=== PATIENT | female | born 1965 | race Caucasian/White ===

== ENCOUNTER 2018-02-15 07:11 | Emergency (ER) | payer OTHER ==
[2018-02-15] MEDS: KETOROLAC 30 MG INJ IV (08:03)
[2018-02-15] MEDS: ONDANSETRON 4 MG INJ IV ×2 (08:03→09:41)
[2018-02-15 08:18] LABS: ADD MAN DIFF? NO
[2018-02-15 08:19] LABS: BASOPHILS % 0.5 % (0.0-2.0); EOSINOPHILS # 0.2 10^3/ul (0.0-0.5); EOSINOPHILS % 3.2 % (0.0-7.0); HEMATOCRIT 39.8 % (37.0-47.0); HEMOGLOBIN 13.4 g/dl (12.0-16.0); LYMPHOCYTES # 2.7 10^3/ul (0.8-2.9); LYMPHOCYTES % 35.8 % (15.0-51.0); MEAN CORPUSCULAR HEMOGLOBIN 29.3 pg (29.0-33.0); MEAN CORPUSCULAR HGB CONC 33.7 g/dl (32.0-37.0); MEAN CORPUSCULAR VOLUME 87.1 fl (82.0-101.0); MEAN PLATELET VOLUME 12.5 fl (7.4-10.4); MONOCYTE # 0.6 10^3/ul (0.3-0.9); MONOCYTES % 7.5 % (0.0-11.0); NEUTROPHIL # 3.9 10^3/ul (1.6-7.5); NEUTROPHILS % 52.5 % (39.0-77.0); PLATELET COUNT 223 10^3/UL (140-415); RED BLOOD COUNT 4.57 10^6/ul (4.20-5.40); RED CELL DISTRIBUTION WIDTH 13.5 % (11.5-14.5)
[2018-02-15 08:19] LABS: WHITE BLOOD COUNT 7.5 10^3/ul (4.8-10.8)
[2018-02-15 08:24] LABS: ADD UMIC YES; UR ASCORBIC ACID 20 mg/dL (NEGATIVE); UR BILIRUBIN (Dip) NEGATIVE (NEGATIVE); UR BLOOD (Dip) NEGATIVE (NEGATIVE); UR CLARITY SLIGHTLY CLOUDY (CLEAR); UR COLOR YELLOW (YELLOW); UR GLUCOSE (Dip) NEGATIVE (NEGATIVE); UR KETONES (Dip) NEGATIVE (NEGATIVE); UR LEUKOCYTE ESTERASE (Dip) 2+ Leu/ul (NEGATIVE); UR NITRITE (Dip) NEGATIVE (NEGATIVE); UR RBC 2 /HPF (0-5); UR SPECIFIC GRAVITY (Dip) 1.018 (1.003-1.030); UR SQUAMOUS EPITHELIAL CELL FEW /HPF (FEW); UR TOTAL PROTEIN (Dip) NEGATIVE (NEGATIVE); UR UROBILINOGEN (Dip) NEGATIVE (NEGATIVE); UR WBC 1 /HPF (0-5)
[2018-02-15 08:40] LABS: ALANINE AMINOTRANSFERASE 56 IU/L (13-69); ALBUMIN/GLOBULIN RATIO 1.37; ALKALINE PHOSPHATASE 83 IU/L (42-121); ANION GAP 16 (8-16); ASPARTATE AMINO TRANSFERASE 44 IU/L (15-46); BILIRUBIN,INDIRECT 0.3 mg/dl (0-1.1); BILIRUBIN,TOTAL 0.3 mg/dl (0.2-1.3); BLOOD UREA NITROGEN 12 mg/dl (7-20); CALCIUM 9.2 mg/dl (8.4-10.2); CARBON DIOXIDE 24 mmol/L (21-31); CHLORIDE 107 mmol/L (97-110); CREATININE 0.56 mg/dl (0.44-1.00); GLUCOSE 158 mg/dl (70-220); LIPASE 859 U/L (23-300); POTASSIUM 4.2 mmol/L (3.5-5.1); SODIUM 143 mmol/L (135-144); TOTAL PROTEIN 6.9 g/dl (6.1-8.1)
[2018-02-15] MEDS: morphine 4 MG/ML VIAL IV (09:41)
[2018-02-15] MEDS: SOD CHLORIDE 0.9% 1,000 ML IV (09:42)
[2018-02-15] MEDS: SOD CHLORIDE 0.9% 100 ML (09:45)
[2018-02-15] MEDS: IOHEXOL 300MG/ML 150 ML BTL (09:45)
== END 2018-02-15 11:30 | disposition home or self-care (01) ==
LOC: FTE 07:11
DX: R10.32 Left lower quadrant pain (principal); E66.9 Obesity, unspecified; I10 Essential (primary) hypertension; E11.9 Type 2 diabetes mellitus without complications; Z68.34 Body mass index [BMI] 34.0-34.9, adult; Z79.84 Long term (current) use of oral hypoglycemic drugs
CPT/HCPCS: 36415; 74177; 76775; 80053; 81001; 83690; 85025; 96374; 96375; 96376; 99285-25

== ENCOUNTER 2018-02-26 16:41 | Emergency (ER) | payer OTHER ==
[2018-02-26 19:50] LABS: ADD MAN DIFF? NO
[2018-02-26 19:52] LABS: BASOPHILS % 0.5 % (0.0-2.0); EOSINOPHILS # 0.3 10^3/ul (0.0-0.5); EOSINOPHILS % 3.2 % (0.0-7.0); HEMATOCRIT 40.8 % (37.0-47.0); HEMOGLOBIN 13.7 g/dl (12.0-16.0); LYMPHOCYTES # 2.8 10^3/ul (0.8-2.9); LYMPHOCYTES % 33.5 % (15.0-51.0); MEAN CORPUSCULAR HEMOGLOBIN 29.6 pg (29.0-33.0); MEAN CORPUSCULAR HGB CONC 33.6 g/dl (32.0-37.0); MEAN CORPUSCULAR VOLUME 88.1 fl (82.0-101.0); MEAN PLATELET VOLUME 12.1 fl (7.4-10.4); MONOCYTE # 0.6 10^3/ul (0.3-0.9); MONOCYTES % 6.8 % (0.0-11.0); NEUTROPHIL # 4.7 10^3/ul (1.6-7.5); NEUTROPHILS % 55.8 % (39.0-77.0); PLATELET COUNT 250 10^3/UL (140-415); RED BLOOD COUNT 4.63 10^6/ul (4.20-5.40); RED CELL DISTRIBUTION WIDTH 13.4 % (11.5-14.5)
[2018-02-26 19:52] LABS: WHITE BLOOD COUNT 8.4 10^3/ul (4.8-10.8)
[2018-02-26 19:59] LABS: ADD UMIC YES; UR ASCORBIC ACID 20 mg/dL (NEGATIVE); UR BILIRUBIN (Dip) NEGATIVE (NEGATIVE); UR BLOOD (Dip) NEGATIVE (NEGATIVE); UR CLARITY SLIGHTLY CLOUDY (CLEAR); UR COLOR YELLOW (YELLOW); UR GLUCOSE (Dip) 2+ mg/dL (NEGATIVE); UR KETONES (Dip) TRACE mg/dL (NEGATIVE); UR LEUKOCYTE ESTERASE (Dip) TRACE Leu/ul (NEGATIVE); UR NITRITE (Dip) NEGATIVE (NEGATIVE); UR RBC 1 /HPF (0-5); UR SPECIFIC GRAVITY (Dip) 1.021 (1.003-1.030); UR SQUAMOUS EPITHELIAL CELL FEW /HPF (FEW); UR TOTAL PROTEIN (Dip) 1+ mg/dl (NEGATIVE); UR UROBILINOGEN (Dip) NEGATIVE (NEGATIVE); UR WBC 2 /HPF (0-5)
[2018-02-26 20:09] LABS: ALANINE AMINOTRANSFERASE 45 IU/L (13-69); ALBUMIN 4.7 g/dl (3.3-4.9); ALBUMIN/GLOBULIN RATIO 1.38; ALKALINE PHOSPHATASE 108 IU/L (42-121); ANION GAP 20 (8-16); ASPARTATE AMINO TRANSFERASE 41 IU/L (15-46); BILIRUBIN,INDIRECT 0.2 mg/dl (0-1.1); BILIRUBIN,TOTAL 0.2 mg/dl (0.2-1.3); BLOOD UREA NITROGEN 17 mg/dl (7-20); CALCIUM 9.9 mg/dl (8.4-10.2); CARBON DIOXIDE 25 mmol/L (21-31); CHLORIDE 104 mmol/L (97-110); CREATININE 0.71 mg/dl (0.44-1.00); GLUCOSE 256 mg/dl (70-220); LIPASE 331 U/L (23-300); POTASSIUM 3.9 mmol/L (3.5-5.1); SODIUM 145 mmol/L (135-144); TOTAL PROTEIN 8.1 g/dl (6.1-8.1)
[2018-02-26] MEDS: ONDANSETRON 4 MG INJ IV (20:50)
[2018-02-26] MEDS: morphine 4 MG/ML VIAL IV (20:50)
[2018-02-26] MEDS: SOD CHLORIDE 0.9% 1,000 ML IV (20:51)
== END 2018-02-26 22:03 | disposition home or self-care (01) ==
LOC: FTE 16:41 → E/R 22:03
DX: K85.90 Acute pancreatitis without necrosis or infection, unspecified (principal); R11.0 Nausea; E11.9 Type 2 diabetes mellitus without complications; I10 Essential (primary) hypertension; J45.909 Unspecified asthma, uncomplicated; J44.9 Chronic obstructive pulmonary disease, unspecified; Z79.84 Long term (current) use of oral hypoglycemic drugs
CPT/HCPCS: 36415; 80053; 81001; 83690; 85025; 96374; 96375; 99284-25

== ENCOUNTER 2018-04-01 15:22 | Emergency (ER) | payer OTHER ==
[2018-04-01] MEDS: ONDANSETRON (ODT) 4 MG TAB ODT (16:35)
[2018-04-01] MEDS: KETOROLAC 30 MG INJ IM (16:35)
[2018-04-01 17:01] LABS: ADD UMIC YES; UR ASCORBIC ACID NEGATIVE (NEGATIVE); UR BILIRUBIN (Dip) NEGATIVE (NEGATIVE); UR BLOOD (Dip) NEGATIVE (NEGATIVE); UR CLARITY CLOUDY (CLEAR); UR COLOR AMBER (YELLOW); UR GLUCOSE (Dip) 3+ mg/dL (NEGATIVE); UR KETONES (Dip) TRACE mg/dL (NEGATIVE); UR LEUKOCYTE ESTERASE (Dip) TRACE Leu/ul (NEGATIVE); UR NITRITE (Dip) NEGATIVE (NEGATIVE); UR RBC 1 /HPF (0-5); UR SPECIFIC GRAVITY (Dip) 1.016 (1.003-1.030); UR SQUAMOUS EPITHELIAL CELL FEW /HPF (FEW); UR TOTAL PROTEIN (Dip) NEGATIVE (NEGATIVE); UR UROBILINOGEN (Dip) NEGATIVE (NEGATIVE); UR WBC 2 /HPF (0-5)
== END 2018-04-01 17:22 | disposition home or self-care (01) ==
LOC: FTE 15:22
DX: R10.9 Unspecified abdominal pain (principal); E11.9 Type 2 diabetes mellitus without complications; I10 Essential (primary) hypertension; Z79.4 Long term (current) use of insulin
CPT/HCPCS: 81001; 87086; 96372; 99284-25

== ENCOUNTER 2018-05-08 19:18 | Emergency (ER) | payer OTHER ==
[2018-05-08] MEDS: METOCLOPRAMIDE 10 MG INJ IV (20:48)
[2018-05-08] MEDS: DIPHENHYDRAMINE 50 MG INJ IV (20:48)
[2018-05-08] MEDS: KETOROLAC 15 MG INJ IV (20:48)
[2018-05-08] MEDS: SOD CHLORIDE 0.9% 1,000 ML IV (20:48)
[2018-05-08 21:05] LABS: ADD MAN DIFF? NO
[2018-05-08 21:09] LABS: BASOPHILS % 0.4 % (0.0-2.0); EOSINOPHILS # 0.2 10^3/ul (0.0-0.5); EOSINOPHILS % 3.2 % (0.0-7.0); HEMOGLOBIN 12.7 g/dl (12.0-16.0); LYMPHOCYTES # 2.1 10^3/ul (0.8-2.9); LYMPHOCYTES % 29.7 % (15.0-51.0); MEAN CORPUSCULAR HEMOGLOBIN 29.2 pg (29.0-33.0); MEAN CORPUSCULAR HGB CONC 32.6 g/dl (32.0-37.0); MEAN CORPUSCULAR VOLUME 89.7 fl (82.0-101.0); MEAN PLATELET VOLUME 12.3 fl (7.4-10.4); MONOCYTE # 0.6 10^3/ul (0.3-0.9); MONOCYTES % 8.1 % (0.0-11.0); NEUTROPHIL # 4.2 10^3/ul (1.6-7.5); NEUTROPHILS % 58.3 % (39.0-77.0); PLATELET COUNT 242 10^3/UL (140-415); RED BLOOD COUNT 4.35 10^6/ul (4.20-5.40); RED CELL DISTRIBUTION WIDTH 13.1 % (11.5-14.5)
[2018-05-08 21:09] LABS: WHITE BLOOD COUNT 7.2 10^3/ul (4.8-10.8)
[2018-05-08 21:13] LABS: ADD UMIC YES; UR ASCORBIC ACID NEGATIVE (NEGATIVE); UR BACTERIA FEW /HPF (NONE SEEN); UR BILIRUBIN (Dip) NEGATIVE (NEGATIVE); UR BLOOD (Dip) NEGATIVE (NEGATIVE); UR CLARITY SLIGHTLY CLOUDY (CLEAR); UR COLOR YELLOW (YELLOW); UR GLUCOSE (Dip) 3+ mg/dL (NEGATIVE); UR KETONES (Dip) TRACE mg/dL (NEGATIVE); UR LEUKOCYTE ESTERASE (Dip) 1+ Leu/ul (NEGATIVE); UR NITRITE (Dip) NEGATIVE (NEGATIVE); UR RBC 3 /HPF (0-5); UR SPECIFIC GRAVITY (Dip) 1.018 (1.003-1.030); UR SQUAMOUS EPITHELIAL CELL FEW /HPF (FEW); UR TOTAL PROTEIN (Dip) NEGATIVE (NEGATIVE); UR UROBILINOGEN (Dip) NEGATIVE (NEGATIVE); UR WBC 7 /HPF (0-5)
[2018-05-08] MEDS: morphine 4 MG/ML VIAL IV (21:20)
[2018-05-08 21:34] LABS: ALANINE AMINOTRANSFERASE 32 IU/L (13-69); ALBUMIN 4.1 g/dl (3.3-4.9); ALBUMIN/GLOBULIN RATIO 1.28; ALKALINE PHOSPHATASE 99 IU/L (42-121); ANION GAP 13 (8-16); ASPARTATE AMINO TRANSFERASE 31 IU/L (15-46); BILIRUBIN,INDIRECT 0.4 mg/dl (0-1.1); BILIRUBIN,TOTAL 0.4 mg/dl (0.2-1.3); BLOOD UREA NITROGEN 16 mg/dl (7-20); CALCIUM 9.2 mg/dl (8.4-10.2); CARBON DIOXIDE 26 mmol/L (21-31); CHLORIDE 106 mmol/L (97-110); CREATININE 0.72 mg/dl (0.44-1.00); GLUCOSE 284 mg/dl (70-220); LIPASE 178 U/L (23-300); POTASSIUM 4.1 mmol/L (3.5-5.1); SODIUM 141 mmol/L (135-144); TOTAL PROTEIN 7.3 g/dl (6.1-8.1)
== END 2018-05-08 23:34 | disposition home or self-care (01) ==
LOC: E/R 23:34
DX: N30.00 Acute cystitis without hematuria (principal); E11.65 Type 2 diabetes mellitus with hyperglycemia; I10 Essential (primary) hypertension; Z79.4 Long term (current) use of insulin
CPT/HCPCS: 36415; 80053; 81001; 83690; 85025; 96374; 96375; 99284-25

== ENCOUNTER 2018-06-22 12:11 | Emergency (ER) | payer OTHER ==
[2018-06-22 14:26] LABS: ADD MAN DIFF? NO
[2018-06-22 14:30] LABS: BASOPHILS % 0.4 % (0.0-2.0); EOSINOPHILS # 0.2 10^3/ul (0.0-0.5); EOSINOPHILS % 2.3 % (0.0-7.0); HEMATOCRIT 38.8 % (37.0-47.0); LYMPHOCYTES # 2.5 10^3/ul (0.8-2.9); LYMPHOCYTES % 32.6 % (15.0-51.0); MEAN CORPUSCULAR HEMOGLOBIN 29.7 pg (29.0-33.0); MEAN CORPUSCULAR HGB CONC 33.5 g/dl (32.0-37.0); MEAN CORPUSCULAR VOLUME 88.8 fl (82.0-101.0); MEAN PLATELET VOLUME 11.8 fl (7.4-10.4); MONOCYTE # 0.5 10^3/ul (0.3-0.9); MONOCYTES % 6.6 % (0.0-11.0); NEUTROPHIL # 4.4 10^3/ul (1.6-7.5); NEUTROPHILS % 57.8 % (39.0-77.0); PLATELET COUNT 239 10^3/UL (140-415); RED BLOOD COUNT 4.37 10^6/ul (4.20-5.40); RED CELL DISTRIBUTION WIDTH 13.1 % (11.5-14.5)
[2018-06-22 14:30] LABS: WHITE BLOOD COUNT 7.5 10^3/ul (4.8-10.8)
[2018-06-22 14:47] LABS: ANION GAP 14 (8-16); BLOOD UREA NITROGEN 20 mg/dl (7-20); CALCIUM 9.2 mg/dl (8.4-10.2); CARBON DIOXIDE 24 mmol/L (21-31); CHLORIDE 107 mmol/L (97-110); GLUCOSE 243 mg/dl (70-220); POTASSIUM 3.7 mmol/L (3.5-5.1); SODIUM 141 mmol/L (135-144)
[2018-06-22 14:59] LABS: TROPONIN-I < 0.010 ng/ml (0.000-0.120)
[2018-06-22 17:59] LABS: TROPONIN-I < 0.010 ng/ml (0.000-0.120)
[2018-06-22] MEDS: IBUPROFEN 600 MG TAB PO (18:57)
== END 2018-06-22 19:02 | disposition home or self-care (01) ==
LOC: E/R 12:11
DX: R07.9 Chest pain, unspecified (principal); M25.512 Pain in left shoulder; E11.65 Type 2 diabetes mellitus with hyperglycemia; I10 Essential (primary) hypertension; J44.9 Chronic obstructive pulmonary disease, unspecified; Z79.4 Long term (current) use of insulin
CPT/HCPCS: 36415; 71045; 80048; 84484; 85025; 93005; 99285-25

== ENCOUNTER 2018-10-16 08:22 | Emergency (ER) | payer OTHER ==
[2018-10-16] MEDS: ALBUTEROL 0.5% (NEB) 2.5 MG/0.5 ML AMP NEB (09:08)
[2018-10-16] MEDS: ACETAMINOPHEN 500 MG TAB PO (09:08)
[2018-10-16] MEDS: DEXAMETHASONE 10 MG/ML 1 ML INJ IM (09:20)
[2018-10-16 09:31] LABS: ADD UMIC YES; UR ASCORBIC ACID NEGATIVE (NEGATIVE); UR BILIRUBIN (Dip) NEGATIVE (NEGATIVE); UR BLOOD (Dip) NEGATIVE (NEGATIVE); UR CLARITY CLEAR (CLEAR); UR COLOR YELLOW (YELLOW); UR GLUCOSE (Dip) NEGATIVE (NEGATIVE); UR KETONES (Dip) NEGATIVE (NEGATIVE); UR LEUKOCYTE ESTERASE (Dip) NEGATIVE Leu/ul (NEGATIVE); UR NITRITE (Dip) NEGATIVE (NEGATIVE); UR RBC 0 /HPF (0-5); UR SPECIFIC GRAVITY (Dip) 1.017 (1.003-1.030); UR TOTAL PROTEIN (Dip) 1+ mg/dl (NEGATIVE); UR UROBILINOGEN (Dip) NEGATIVE (NEGATIVE); UR WBC 1 /HPF (0-5)
== END 2018-10-16 09:59 | disposition home or self-care (01) ==
LOC: FTE 08:22
DX: J06.9 Acute upper respiratory infection, unspecified (principal); J45.909 Unspecified asthma, uncomplicated; E11.9 Type 2 diabetes mellitus without complications; H10.31 Unspecified acute conjunctivitis, right eye; Z79.4 Long term (current) use of insulin
CPT/HCPCS: 71046; 81001; 82962; 94644; 96372; 99284-25

== ENCOUNTER 2018-11-18 11:09 | Emergency (ER) | payer OTHER ==
[2018-11-18 12:36] LABS: INR 0.92; PROTIME 12.4 Sec (11.9-14.9)
[2018-11-18 12:39] LABS: ALANINE AMINOTRANSFERASE 37 IU/L (13-69); ALBUMIN 4.3 g/dl (3.3-4.9); ALBUMIN/GLOBULIN RATIO 1.43; ALKALINE PHOSPHATASE 76 IU/L (42-121); ANION GAP 14 (5-13); ASPARTATE AMINO TRANSFERASE 57 IU/L (15-46); BILIRUBIN,INDIRECT 0.2 mg/dl (0-1.1); BILIRUBIN,TOTAL 0.2 mg/dl (0.2-1.3); BLOOD UREA NITROGEN 15 mg/dl (7-20); CALCIUM 9.6 mg/dl (8.4-10.2); CARBON DIOXIDE 25 mmol/L (21-31); CHLORIDE 106 mmol/L (97-110); CREATININE 0.53 mg/dl (0.44-1.00); Estimated GFR > 60 mL/min (>60); GLUCOSE 252 mg/dl (70-220); POTASSIUM 4.9 mmol/L (3.5-5.1); SODIUM 145 mmol/L (135-144); TOTAL PROTEIN 7.3 g/dl (6.1-8.1)
[2018-11-18 12:50] LABS: TROPONIN-I < 0.012 ng/ml (0.000-0.120)
[2018-11-18 13:01] LABS: ADD MAN DIFF? NO
[2018-11-18 13:02] LABS: ABNORMAL IP MESSAGE 1; BASOPHILS % 0.5 % (0.0-2.0); EOSINOPHILS # 0.1 10^3/ul (0.0-0.5); EOSINOPHILS % 1.8 % (0.0-7.0); HEMATOCRIT 39.2 % (37.0-47.0); LYMPHOCYTES # 2.1 10^3/ul (0.8-2.9); LYMPHOCYTES % 35.1 % (15.0-51.0); MEAN CORPUSCULAR HEMOGLOBIN 29.4 pg (29.0-33.0); MEAN CORPUSCULAR HGB CONC 33.2 g/dl (32.0-37.0); MEAN CORPUSCULAR VOLUME 88.7 fl (82.0-101.0); MEAN PLATELET VOLUME 13.1 fl (7.4-10.4); MONOCYTE # 0.4 10^3/ul (0.3-0.9); MONOCYTES % 6.7 % (0.0-11.0); NEUTROPHIL # 3.3 10^3/ul (1.6-7.5); NEUTROPHILS % 55.6 % (39.0-77.0); PLATELET COUNT 236 10^3/UL (140-415); RED BLOOD COUNT 4.42 10^6/ul (4.20-5.40); RED CELL DISTRIBUTION WIDTH 13.4 % (11.5-14.5)
[2018-11-18 13:08] LABS: POSITIVE DIFF @See below
== END 2018-11-18 13:57 | disposition home or self-care (01) ==
LOC: E/R 11:09
DX: R07.9 Chest pain, unspecified (principal); J45.20 Mild intermittent asthma, uncomplicated; J98.11 Atelectasis; I10 Essential (primary) hypertension; E11.9 Type 2 diabetes mellitus without complications; R40.2252 Coma scale, best verbal response, oriented, at arrival to emergency department; R40.2362 Coma scale, best motor response, obeys commands, at arrival to emergency department; R40.2142 Coma scale, eyes open, spontaneous, at arrival to emergency department; Z79.4 Long term (current) use of insulin
CPT/HCPCS: 36415; 71045; 80053; 84484; 85025; 85610; 93005; 99285-25

== ENCOUNTER 2018-11-21 13:42 | Emergency (ER) | payer OTHER ==
[2018-11-21] MEDS: SOD CHLORIDE 0.9% 1,000 ML IV (14:40)
[2018-11-21 14:56] LABS: ADD MAN DIFF? NO
[2018-11-21 14:58] LABS: BASOPHILS % 0.5 % (0.0-2.0); EOSINOPHILS # 0.2 10^3/ul (0.0-0.5); EOSINOPHILS % 2.4 % (0.0-7.0); HEMATOCRIT 39.2 % (37.0-47.0); LYMPHOCYTES # 2.1 10^3/ul (0.8-2.9); LYMPHOCYTES % 32.6 % (15.0-51.0); MEAN CORPUSCULAR HEMOGLOBIN 29.1 pg (29.0-33.0); MEAN CORPUSCULAR HGB CONC 33.2 g/dl (32.0-37.0); MEAN CORPUSCULAR VOLUME 87.7 fl (82.0-101.0); MEAN PLATELET VOLUME 12.7 fl (7.4-10.4); MONOCYTE # 0.6 10^3/ul (0.3-0.9); MONOCYTES % 9.5 % (0.0-11.0); NEUTROPHIL # 3.5 10^3/ul (1.6-7.5); NEUTROPHILS % 54.5 % (39.0-77.0); PLATELET COUNT 203 10^3/UL (140-415); RED BLOOD COUNT 4.47 10^6/ul (4.20-5.40)
[2018-11-21 14:58] LABS: WHITE BLOOD COUNT 6.3 10^3/ul (4.8-10.8)
[2018-11-21] MEDS: IPRATROPIUM (NEB) 0.5 MG/2.5 ML AMP NEB (14:59)
[2018-11-21] MEDS: ALBUTEROL 0.083% (NEB) 2.5 MG/3 ML AMP NEB (14:59)
[2018-11-21] MEDS: CEFTRIAXONE 1 GM/50 ML (PMX) 50 ML IVPB (15:47)
[2018-11-21 15:52] LABS: ANION GAP 11 (5-13); BLOOD UREA NITROGEN 16 mg/dl (7-20); CALCIUM 9.6 mg/dl (8.4-10.2); CARBON DIOXIDE 25 mmol/L (21-31); CHLORIDE 105 mmol/L (97-110); CREATININE 0.56 mg/dl (0.44-1.00); Estimated GFR > 60 mL/min (>60); GLUCOSE 174 mg/dl (70-220); POTASSIUM 5.3 mmol/L (3.5-5.1); SODIUM 141 mmol/L (135-144)
[2018-11-21 16:03] LABS: TROPONIN-I < 0.012 ng/ml (0.000-0.120)
[2018-11-21] MEDS: ALBUTEROL 0.083% (NEB) 2.5 MG/3 ML AMP HHN (16:59)
[2018-11-21] MEDS: IPRATROPIUM (NEB) 0.5 MG/2.5 ML AMP HHN (17:00)
[2018-11-21 23:29] LABS: D-DIMER < 460.00 ng/ml (<460)
== END 2018-11-21 17:36 | disposition home or self-care (01) ==
LOC: FTE 17:36
DX: A49.9 Bacterial infection, unspecified (principal); I10 Essential (primary) hypertension; E11.9 Type 2 diabetes mellitus without complications; Z79.4 Long term (current) use of insulin
CPT/HCPCS: 71045; 80048; 84484; 85025; 85378; 87400; 93005; 94640; 94664; 96361; 96365; 99285-25

== ENCOUNTER 2018-12-15 12:37 | Emergency (ER) | payer OTHER ==
[2018-12-15] MEDS: HYDROCODONE/APAP (5/325) TAB PO (15:19)
[2018-12-15] MEDS: ONDANSETRON (ODT) 4 MG TAB ODT (15:20)
== END 2018-12-15 16:36 | disposition home or self-care (01) ==
LOC: FTE 12:37
DX: M54.40 Lumbago with sciatica, unspecified side (principal); R20.0 Anesthesia of skin; I10 Essential (primary) hypertension; E11.9 Type 2 diabetes mellitus without complications; Z79.4 Long term (current) use of insulin
CPT/HCPCS: 70450; 99284-25

== ENCOUNTER 2019-02-12 09:55 | Emergency (ER) | payer OTHER ==
[2019-02-12 13:47] LABS: URINE BLOOD (Dip) POC Negative (NEGATIVE); URINE GLUCOSE (Dip) POC Negative (NEGATIVE); URINE KETONES (Dip) POC Trace (NEGATIVE); URINE LEUKOCYTE EST (Dip) POC Negative (NEGATIVE); URINE NITRITE (Dip) POC Negative (NEGATIVE); URINE TOTAL PROTEIN POC 2+ (NEGATIVE)
[2019-02-12 13:56] LABS: ADD UMIC YES; UR ASCORBIC ACID NEGATIVE (NEGATIVE); UR BILIRUBIN (Dip) NEGATIVE (NEGATIVE); UR BLOOD (Dip) NEGATIVE (NEGATIVE); UR CLARITY SLIGHTLY CLOUDY (CLEAR); UR COLOR YELLOW (YELLOW); UR GLUCOSE (Dip) NEGATIVE (NEGATIVE); UR KETONES (Dip) TRACE mg/dL (NEGATIVE); UR LEUKOCYTE ESTERASE (Dip) TRACE Leu/ul (NEGATIVE); UR MUCUS FEW /HPF (NONE SEEN); UR NITRITE (Dip) NEGATIVE (NEGATIVE); UR RBC 1 /HPF (0-5); UR SPECIFIC GRAVITY (Dip) 1.024 (1.003-1.030); UR SQUAMOUS EPITHELIAL CELL FEW /HPF (FEW); UR TOTAL PROTEIN (Dip) 2+ mg/dl (NEGATIVE); UR UROBILINOGEN (Dip) NEGATIVE (NEGATIVE); UR WBC 6 /HPF (0-5)
[2019-02-12] MEDS: KETOROLAC 30 MG INJ IM (13:57)
[2019-02-12] MEDS: OXYCODONE/ACETAMINOPHEN (5/325) TAB PO (13:57)
[2019-02-12] MEDS: LIDOCAINE 1% (MPF) 5 ML VIAL INJ (14:31)
[2019-02-12] MEDS: CEFTRIAXONE 1 GM INJ IM (14:31)
== END 2019-02-12 15:44 | disposition home or self-care (01) ==
LOC: E/R 09:55
DX: N39.0 Urinary tract infection, site not specified (principal); I10 Essential (primary) hypertension; E66.9 Obesity, unspecified; Z87.891 Personal history of nicotine dependence; Z79.4 Long term (current) use of insulin
CPT/HCPCS: 81001; 81003; 87086; 96372; 99284-25

== ENCOUNTER 2019-03-25 16:35 | Emergency (ER) | payer OTHER ==
[2019-03-25] MEDS: predniSONE 20 MG TAB PO (18:07)
[2019-03-25] MEDS: IPRATROPIUM (NEB) 0.5 MG/2.5 ML AMP NEB (18:16)
[2019-03-25] MEDS: ALBUTEROL 0.083% (NEB) 2.5 MG/3 ML AMP NEB (18:16)
== END 2019-03-25 19:28 | disposition home or self-care (01) ==
LOC: FTE 16:35
DX: J45.901 Unspecified asthma with (acute) exacerbation (principal); I10 Essential (primary) hypertension; Z79.4 Long term (current) use of insulin
CPT/HCPCS: 94640; 94664; 99283-25

== ENCOUNTER 2019-05-29 23:48 | Inpatient (IN) | payer OTHER ==
[2019-05-30] MEDS ORDERED: NACL 0.9% 3 ML SYG IV (03:30)
[2019-05-30] MEDS ORDERED: GLUCOSE GEL 15 GRAM TUBE PO ×2 (03:30)
[2019-05-30] MEDS ORDERED: DEXTROSE 50% 50 ML SYRINGE IV ×2 (03:30)
[2019-05-30] MEDS ORDERED: ONDANSETRON 4 MG INJ IV (03:30)
[2019-05-30] MEDS ORDERED: ACETAMINOPHEN 325 MG TAB PO (03:30)
[2019-05-30] MEDS ORDERED: ALBUTEROL HFA 8 GM INHALER INH (03:30)
[2019-05-30] MEDS ORDERED: GLUCOSE GEL 15 GRAM TUBE BUCCAL (03:30)
[2019-05-30] MEDS ORDERED: ALBUTEROL/IPRATROPIUM (NEB) 3 ML AMP HHN (03:30)
[2019-05-30] MEDS ORDERED: GLUCAGON 1 MG INJ IM (03:30)
[2019-05-30] MEDS: DEXTROSE 5%-0.45% NACL 1,000 ML IV (06:21)
[2019-05-30 06:26] LABS: ADD MAN DIFF? NO
[2019-05-30 06:48] LABS: BASOPHILS % 0.4 % (0.0-2.0); EOSINOPHILS # 0.3 10^3/ul (0.0-0.5); EOSINOPHILS % 4.4 % (0.0-7.0); HEMATOCRIT 36.1 % (37.0-47.0); HEMOGLOBIN 11.9 g/dl (12.0-16.0); LYMPHOCYTES # 2.4 10^3/ul (0.8-2.9); LYMPHOCYTES % 33.6 % (15.0-51.0); MEAN CORPUSCULAR HEMOGLOBIN 28.2 pg (29.0-33.0); MEAN CORPUSCULAR VOLUME 85.5 fl (82.0-101.0); MEAN PLATELET VOLUME 12.7 fl (7.4-10.4); MONOCYTE # 0.5 10^3/ul (0.3-0.9); MONOCYTES % 6.8 % (0.0-11.0); NEUTROPHIL # 3.9 10^3/ul (1.6-7.5); NEUTROPHILS % 54.5 % (39.0-77.0); PLATELET COUNT 209 10^3/UL (140-415); RED BLOOD COUNT 4.22 10^6/ul (4.20-5.40); RED CELL DISTRIBUTION WIDTH 13.7 % (11.5-14.5)
[2019-05-30 06:48] LABS: WHITE BLOOD COUNT 7.1 10^3/ul (4.8-10.8)
[2019-05-30] MEDS: HYDROCODONE/APAP (5/325) TAB PO ×3 (06:48→21:38)
[2019-05-30 07:30] LABS: ALANINE AMINOTRANSFERASE 38 IU/L (13-69); ALBUMIN 3.6 g/dl (3.3-4.9); ALKALINE PHOSPHATASE 65 IU/L (42-121); ANION GAP 8 (5-13); ASPARTATE AMINO TRANSFERASE 42 IU/L (15-46); BILIRUBIN,INDIRECT 0.4 mg/dl (0-1.1); BILIRUBIN,TOTAL 0.4 mg/dl (0.2-1.3); BLOOD UREA NITROGEN 13 mg/dl (7-20); CALCIUM 8.9 mg/dl (8.4-10.2); CARBON DIOXIDE 24 mmol/L (21-31); CHLORIDE 109 mmol/L (97-110); CHOL/HDL RATIO 3.1 RATIO; CHOLESTEROL 124 mg/dl (100-200); CREATININE 0.56 mg/dl (0.44-1.00); Estimated GFR > 60 mL/min (>60); GLUCOSE 214 mg/dl (70-220); HDL CHOLESTEROL 40 mg/dl (37-92); LDL CHOLESTEROL,CALCULATED 59 mg/dl; MAGNESIUM 1.6 mg/dl (1.7-2.5); POTASSIUM 4.1 mmol/L (3.5-5.1); SODIUM 141 mmol/L (135-144); TOTAL PROTEIN 6.6 g/dl (6.1-8.1); TRIGLYCERIDES 123 mg/dl (0-149)
[2019-05-30] MEDS: INSULIN ASPART [NOVOLOG] 3 ML PEN SC ×4 (08:01→20:58)
[2019-05-30] MEDS: INSULIN GLARGINE [LANTus] (100 UNITS/ML) SYG SC ×2 (08:19→20:45)
[2019-05-30] MEDS: DEXAMETHASONE 4 MG/ML 1 ML INJ IV ×3 (08:59→17:42)
[2019-05-30] MEDS: FLUOXETINE 20 MG CAP PO (09:00)
[2019-05-30] MEDS ORDERED: HEPARIN 5,000 UNIT/1 ML VIAL SC (09:00)
[2019-05-30] MEDS: TIOTROPIUM 18 MCG CAPSULE INHA DEV INH (09:01)
[2019-05-30] MEDS: FLUTICASONE/VILANTEROL 100-25 INH (09:09)
[2019-05-30] MEDS: LISINOPRIL 5 MG TAB PO (09:31)
[2019-05-30] MEDS: HEPARIN 5,000 UNIT/1 ML VIAL SC ×2 (09:36→20:50)
[2019-05-30 10:32] LABS: HEMOGLOBIN A1C 9.2 % (0-5.9)
[2019-05-30] MEDS ORDERED: INSULIN GLARGINE [LANTus] (100 UNITS/ML) SYG SC (19:00)
[2019-05-30] MEDS: MAGNESIUM SULFATE 2 GM/50 ML 50 ML IVPB (20:09)
[2019-05-30] MEDS: ATORVASTATIN 40 MG TAB PO (20:10)
[2019-05-31] MEDS: DEXAMETHASONE 4 MG/ML 1 ML INJ IV ×4 (01:08→17:17)
[2019-05-31] MEDS: ACCU-CHEK XX (02:06)
[2019-05-31 06:19] LABS: ADD MAN DIFF? NO
[2019-05-31 06:34] LABS: WHITE BLOOD COUNT 7.6 10^3/ul (4.8-10.8)
[2019-05-31 06:34] LABS: BASOPHILS % 0.1 % (0.0-2.0); HEMATOCRIT 37.6 % (37.0-47.0); HEMOGLOBIN 12.6 g/dl (12.0-16.0); LYMPHOCYTES # 1.1 10^3/ul (0.8-2.9); LYMPHOCYTES % 14.2 % (15.0-51.0); MEAN CORPUSCULAR HEMOGLOBIN 28.2 pg (29.0-33.0); MEAN CORPUSCULAR HGB CONC 33.5 g/dl (32.0-37.0); MEAN CORPUSCULAR VOLUME 84.1 fl (82.0-101.0); MEAN PLATELET VOLUME 12.4 fl (7.4-10.4); MONOCYTE # 0.2 10^3/ul (0.3-0.9); MONOCYTES % 2.1 % (0.0-11.0); NEUTROPHIL # 6.3 10^3/ul (1.6-7.5); NEUTROPHILS % 83.1 % (39.0-77.0); PLATELET COUNT 225 10^3/UL (140-415); RED BLOOD COUNT 4.47 10^6/ul (4.20-5.40); RED CELL DISTRIBUTION WIDTH 13.5 % (11.5-14.5)
[2019-05-31 07:01] LABS: ANION GAP 11 (5-13); BLOOD UREA NITROGEN 24 mg/dl (7-20); CALCIUM 9.4 mg/dl (8.4-10.2); CARBON DIOXIDE 23 mmol/L (21-31); CHLORIDE 106 mmol/L (97-110); CREATININE 0.65 mg/dl (0.44-1.00); Estimated GFR > 60 mL/min (>60); GLUCOSE 377 mg/dl (70-220); MAGNESIUM 2.2 mg/dl (1.7-2.5); PHOSPHORUS 4.5 mg/dl (2.5-4.9); POTASSIUM 4.8 mmol/L (3.5-5.1); SODIUM 140 mmol/L (135-144)
[2019-05-31] MEDS ORDERED: INSULIN REGULAR, HUMAN 100 UNIT/1 ML 3ML VIAL (07:10)
[2019-05-31] MEDS ORDERED: MIDAZOLAM 1 MG/ML 2 ML INJ (07:10)
[2019-05-31] MEDS ORDERED: ROCURONIUM 50 MG INJ (07:10)
[2019-05-31] MEDS ORDERED: HYDROmorphONE 2 MG/ML SYG (07:10)
[2019-05-31] MEDS ORDERED: ONDANSETRON 4 MG INJ (07:10)
[2019-05-31] MEDS ORDERED: FENTAnyl 50 MCG/ML VIAL (07:10)
[2019-05-31] MEDS ORDERED: DEXAMETHASONE 4 MG/ML 5 ML INJ (07:10)
[2019-05-31] MEDS ORDERED: GELATIN SIZE 100 SPONGE (07:25)
[2019-05-31] MEDS ORDERED: THROMBIN 5000 UNIT VIAL (07:25)
[2019-05-31] MEDS ORDERED: BUPIVACAINE 0.25%/EPI (SDV) 30 ML INJ (07:26)
[2019-05-31] MEDS ORDERED: BUPIVACAINE 0.25% (MPF) 30 ML INJ (07:26)
[2019-05-31] MEDS: INSULIN GLARGINE [LANTus] (100 UNITS/ML) SYG SC ×4 (07:32→21:44)
[2019-05-31] MEDS: INSULIN ASPART [NOVOLOG] 3 ML PEN SC ×6 (07:33→21:44)
[2019-05-31] MEDS ORDERED: CEFAZOLIN 1 GM INJ (08:10)
[2019-05-31] MEDS ORDERED: PROCHLORPERAZINE 10 MG INJ IV (08:30)
[2019-05-31] MEDS ORDERED: FENTAnyl 50 MCG/ML VIAL IV ×2 (08:30)
[2019-05-31] MEDS ORDERED: HYDROmorphONE 1 MG/5 ML IV SYRINGE IV ×3 (08:30)
[2019-05-31] MEDS ORDERED: LABETALOL HCL 20MG INJ IV (08:30)
[2019-05-31] MEDS ORDERED: ALBUTEROL 0.083% (NEB) 2.5 MG/3 ML AMP HHN (08:30)
[2019-05-31] MEDS: POLYMYXIN/BACITRACIN 1L IRRIG (08:36)
[2019-05-31] MEDS: BUPIVACAINE 0.5%/EPI (SDV) 30 ML INJ (08:36)
[2019-05-31] MEDS ORDERED: METOCLOPRAMIDE 10 MG INJ (08:49)
[2019-05-31] MEDS: FLUTICASONE/VILANTEROL 100-25 INH ×2 (09:00)
[2019-05-31] MEDS: LISINOPRIL 5 MG TAB PO ×2 (09:00)
[2019-05-31] MEDS: HEPARIN 5,000 UNIT/1 ML VIAL SC ×2 (09:00→21:44)
[2019-05-31] MEDS: TIOTROPIUM 18 MCG CAPSULE INHA DEV INH ×2 (09:00)
[2019-05-31] MEDS: FLUOXETINE 20 MG CAP PO ×2 (09:00)
[2019-05-31] MEDS ORDERED: KETOROLAC 30 MG INJ (09:26)
[2019-05-31] MEDS ORDERED: SUGAMMADEX SODIUM 200 MG/2 ML VIAL IV (09:55)
[2019-05-31] MEDS: ONDANSETRON 4 MG INJ IV (10:20)
[2019-05-31] MEDS: ACETAMINOPHEN 1000MG/100ML IV 100 ML IVPB (10:20)
[2019-05-31] MEDS: FENTAnyl 50 MCG/ML VIAL IV ×2 (10:40→11:34)
[2019-05-31] MEDS ORDERED: ALBUMIN HUMAN 5% 250 ML (11:02)
[2019-05-31] MEDS: ALBUMIN HUMAN 5% 250 ML IV (11:15)
[2019-05-31] MEDS: HYDROCODONE/APAP (5/325) TAB PO ×3 (12:11→20:29)
[2019-05-31] MEDS ORDERED: CEFAZOLIN 1 GM/50 ML (PMX) 50 ML IVPB (14:00)
[2019-05-31] MEDS: CEFAZOLIN 1 GM/50 ML (PMX) 50 ML IVPB (15:31)
[2019-05-31] MEDS: ATORVASTATIN 40 MG TAB PO (20:29)
[2019-05-31] MEDS: SOD CHLORIDE 0.9% 500 ML IV (22:16)
[2019-05-31] MEDS: SOD CHLORIDE 0.9% 1,000 ML IV (22:17)
[2019-06-01] MEDS: CEFAZOLIN 1 GM/50 ML (PMX) 50 ML IVPB ×2 (00:04→08:07)
[2019-06-01] MEDS: DEXAMETHASONE 4 MG/ML 1 ML INJ IV ×2 (00:06→05:53)
[2019-06-01] MEDS: ACCU-CHEK XX ×2 (02:09→21:00)
[2019-06-01] MEDS: KETOROLAC 30 MG INJ IV (04:21)
[2019-06-01] MEDS: SOD CHLORIDE 0.9% 1,000 ML IV (07:00)
[2019-06-01] MEDS: LISINOPRIL 5 MG TAB PO (08:06)
[2019-06-01] MEDS: FLUOXETINE 20 MG CAP PO (08:06)
[2019-06-01] MEDS: FLUTICASONE/VILANTEROL 100-25 INH (08:07)
[2019-06-01] MEDS: HEPARIN 5,000 UNIT/1 ML VIAL SC ×2 (08:26→20:43)
[2019-06-01] MEDS: INSULIN GLARGINE [LANTus] (100 UNITS/ML) SYG SC ×2 (08:26→20:36)
[2019-06-01] MEDS: INSULIN ASPART [NOVOLOG] 3 ML PEN SC ×5 (08:26→20:39)
[2019-06-01] MEDS ORDERED: TIOTROPIUM 18 MCG CAPSULE INHA DEV INH (16:19)
[2019-06-01] MEDS: HYDROCODONE/APAP (5/325) TAB PO (16:27)
[2019-06-01] MEDS: POLYETHYLENE GLYCOL 17 GM PACKET PO (16:27)
[2019-06-01] MEDS: DOCUSATE SODIUM 100 MG CAP PO (16:27)
[2019-06-01] MEDS: metFORMIN 500 MG TAB PO (17:28)
[2019-06-01] MEDS: TIOTROPIUM 18 MCG CAPSULE INHA DEV INH (17:29)
[2019-06-01] MEDS ORDERED: INSULIN GLARGINE [LANTus] (100 UNITS/ML) SYG SC (20:00)
[2019-06-01] MEDS: NAPROXEN 500 MG TAB PO (20:42)
[2019-06-01] MEDS: ATORVASTATIN 40 MG TAB PO (20:43)
[2019-06-01 21:06] LABS: GLUCOSE 368 mg/dl (70-220)
[2019-06-02] MEDS: HYDROCODONE/APAP (5/325) TAB PO ×3 (01:49→14:33)
[2019-06-02] MEDS: ZOLPIDEM 5 MG TAB PO (01:52)
[2019-06-02] MEDS: INSULIN GLARGINE [LANTus] (100 UNITS/ML) SYG SC (08:17)
[2019-06-02] MEDS: INSULIN ASPART [NOVOLOG] 3 ML PEN SC ×3 (08:17→17:12)
[2019-06-02] MEDS: metFORMIN 500 MG TAB PO ×2 (08:18→17:11)
[2019-06-02] MEDS: LISINOPRIL 5 MG TAB PO (08:18)
[2019-06-02] MEDS: HEPARIN 5,000 UNIT/1 ML VIAL SC (08:18)
[2019-06-02] MEDS: FLUOXETINE 20 MG CAP PO (08:19)
[2019-06-02] MEDS: TIOTROPIUM 18 MCG CAPSULE INHA DEV INH (08:19)
[2019-06-02] MEDS: FLUTICASONE/VILANTEROL 100-25 INH (08:19)
[2019-06-02] MEDS: POLYETHYLENE GLYCOL 17 GM PACKET PO (08:21)
[2019-06-02] MEDS: NA PHOSPHATE/BIPHOS 133 ML ENEMA PR (11:01)
== END 2019-06-02 19:00 | disposition home or self-care (01) | DRG 517 ==
LOC: 6WM 23:48 → PP2 06-01 14:25 → 6WM 05-30 03:23 → PP2 06-01 14:25
PROC: 01NB0ZZ Release Lumbar Nerve, Open Approach (ICD-10-PCS; principal; 2019-05-31 07:30)
DX: M48.061 Spinal stenosis, lumbar region without neurogenic claudication (principal); M54.16 Radiculopathy, lumbar region; I10 Essential (primary) hypertension; E78.5 Hyperlipidemia, unspecified; F32.9 Major depressive disorder, single episode, unspecified; E11.65 Type 2 diabetes mellitus with hyperglycemia
CPT/HCPCS: 72020; 80048; 80053; 80061; 82947; 82962; 83036; 83735; 84100; 85025; 86850; 86900; 86901; 87081; 97116; 97162; 97530

== ENCOUNTER 2019-06-11 09:09 | Emergency (ER) | payer OTHER ==
[2019-06-11] MEDS: predniSONE 20 MG TAB PO (10:09)
[2019-06-11] MEDS: ALBUTEROL 0.083% (NEB) 2.5 MG/3 ML AMP NEB (10:12)
[2019-06-11] MEDS: IPRATROPIUM (NEB) 0.5 MG/2.5 ML AMP NEB (10:12)
== END 2019-06-11 10:24 | disposition home or self-care (01) ==
LOC: FTE 10:24
DX: J45.901 Unspecified asthma with (acute) exacerbation (principal); I10 Essential (primary) hypertension; E11.9 Type 2 diabetes mellitus without complications; Z79.4 Long term (current) use of insulin
CPT/HCPCS: 94664; 99283-25

== ENCOUNTER 2019-06-14 09:18 | Emergency (ER) | payer OTHER ==
[2019-06-14 11:23] LABS: ADD MAN DIFF? NO
[2019-06-14 11:31] LABS: WHITE BLOOD COUNT 7.2 10^3/ul (4.8-10.8)
[2019-06-14 11:31] LABS: BASOPHILS % 0.3 % (0.0-2.0); EOSINOPHILS # 0.3 10^3/ul (0.0-0.5); EOSINOPHILS % 3.5 % (0.0-7.0); HEMATOCRIT 38.5 % (37.0-47.0); HEMOGLOBIN 12.6 g/dl (12.0-16.0); LYMPHOCYTES # 1.9 10^3/ul (0.8-2.9); LYMPHOCYTES % 26.9 % (15.0-51.0); MEAN CORPUSCULAR HEMOGLOBIN 28.8 pg (29.0-33.0); MEAN CORPUSCULAR HGB CONC 32.7 g/dl (32.0-37.0); MEAN CORPUSCULAR VOLUME 87.9 fl (82.0-101.0); MONOCYTE # 0.6 10^3/ul (0.3-0.9); MONOCYTES % 7.7 % (0.0-11.0); NEUTROPHIL # 4.4 10^3/ul (1.6-7.5); NEUTROPHILS % 61.2 % (39.0-77.0); PLATELET COUNT 223 10^3/UL (140-415); RED BLOOD COUNT 4.38 10^6/ul (4.20-5.40); RED CELL DISTRIBUTION WIDTH 13.8 % (11.5-14.5)
[2019-06-14 11:51] LABS: ALANINE AMINOTRANSFERASE 37 IU/L (13-69); ALBUMIN/GLOBULIN RATIO 1.29; ALKALINE PHOSPHATASE 103 IU/L (42-121); ANION GAP 11 (5-13); ASPARTATE AMINO TRANSFERASE 36 IU/L (15-46); BILIRUBIN,INDIRECT 0.4 mg/dl (0-1.1); BILIRUBIN,TOTAL 0.4 mg/dl (0.2-1.3); BLOOD UREA NITROGEN 14 mg/dl (7-20); CALCIUM 9.6 mg/dl (8.4-10.2); CARBON DIOXIDE 24 mmol/L (21-31); CHLORIDE 108 mmol/L (97-110); Estimated GFR > 60 mL/min (>60); GLUCOSE 244 mg/dl (70-220); SODIUM 143 mmol/L (135-144); TOTAL PROTEIN 7.1 g/dl (6.1-8.1)
[2019-06-14 11:54] LABS: D-DIMER 626.88 ng/ml (<460)
[2019-06-14 12:01] LABS: TROPONIN-I < 0.012 ng/ml (0.000-0.120)
[2019-06-14] MEDS: IOHEXOL 100 ML (12:43)
[2019-06-14] MEDS: SOD CHLORIDE 0.9% 100 ML (12:43)
[2019-06-14] MEDS: SOD CHLORIDE 0.9% 1,000 ML IV (13:30)
== END 2019-06-14 14:24 | disposition home or self-care (01) ==
LOC: FTE 09:18
DX: J40 Bronchitis, not specified as acute or chronic (principal); I10 Essential (primary) hypertension; R79.89 Other specified abnormal findings of blood chemistry; E11.9 Type 2 diabetes mellitus without complications; Z79.4 Long term (current) use of insulin; Z79.82 Long term (current) use of aspirin
CPT/HCPCS: 71046; 71275; 80053; 81025; 84484; 85025; 85378; 93005; 96360; 99285-25

== ENCOUNTER 2019-06-18 19:09 | Observation (INO) | payer OTHER ==
[2019-06-18] MEDS: KETOROLAC 15 MG INJ IM (21:07)
[2019-06-18] MEDS ORDERED: ONDANSETRON 4 MG TAB PO (22:00)
[2019-06-18] MEDS ORDERED: BISACODYL (EC) 5 MG TAB PO (22:00)
[2019-06-18] MEDS ORDERED: ACETAMINOPHEN 325 MG TAB PO (22:00)
[2019-06-18] MEDS ORDERED: DOCUSATE SODIUM 100 MG CAP PO (22:00)
[2019-06-18] MEDS ORDERED: NACL 0.9% 3 ML SYG IV (22:00)
[2019-06-18] MEDS: HYDROCODONE/APAP (5/325) TAB PO (22:40)
[2019-06-18] MEDS: morphine 2 MG INJ IV (22:40)
[2019-06-18] MEDS ORDERED: LORAZEPAM 2 MG INJ IV (23:00)
[2019-06-18] MEDS ORDERED: HYDROmorphONE 0.5 MG/0.5 ML SYG IV (23:00)
[2019-06-19] MEDS ORDERED: GLUCOSE GEL 15 GRAM TUBE BUCCAL (01:00)
[2019-06-19] MEDS ORDERED: DEXTROSE 50% 50 ML SYRINGE IV ×2 (01:00)
[2019-06-19] MEDS ORDERED: GLUCOSE GEL 15 GRAM TUBE PO ×2 (01:00)
[2019-06-19] MEDS ORDERED: ZOLPIDEM 5 MG TAB PO ×2 (01:00)
[2019-06-19] MEDS ORDERED: GLUCAGON 1 MG INJ IM (01:00)
[2019-06-19] MEDS ORDERED: ALBUTEROL 18 GM INHALER INH (01:00)
[2019-06-19] MEDS: INSULIN GLARGINE [LANTus] (100 UNITS/ML) SYG SC ×2 (01:16→20:48)
[2019-06-19] MEDS: ACCU-CHEK XX (01:38)
[2019-06-19] MEDS: morphine 2 MG INJ IV ×3 (05:10→20:38)
[2019-06-19 05:28] LABS: ADD MAN DIFF? NO
[2019-06-19 05:30] LABS: BASOPHILS % 0.3 % (0.0-2.0); EOSINOPHILS # 0.3 10^3/ul (0.0-0.5); EOSINOPHILS % 5.6 % (0.0-7.0); HEMATOCRIT 35.7 % (37.0-47.0); HEMOGLOBIN 11.6 g/dl (12.0-16.0); LYMPHOCYTES # 2.2 10^3/ul (0.8-2.9); LYMPHOCYTES % 35.7 % (15.0-51.0); MEAN CORPUSCULAR HGB CONC 32.5 g/dl (32.0-37.0); MEAN CORPUSCULAR VOLUME 89.3 fl (82.0-101.0); MEAN PLATELET VOLUME 12.4 fl (7.4-10.4); MONOCYTE # 0.5 10^3/ul (0.3-0.9); MONOCYTES % 8.6 % (0.0-11.0); NEUTROPHILS % 49.5 % (39.0-77.0); PLATELET COUNT 198 10^3/UL (140-415); RED CELL DISTRIBUTION WIDTH 13.9 % (11.5-14.5)
[2019-06-19 05:30] LABS: WHITE BLOOD COUNT 6.1 10^3/ul (4.8-10.8)
[2019-06-19] MEDS: HYDROCODONE/APAP (5/325) TAB PO ×2 (06:13→19:42)
[2019-06-19 06:36] LABS: ALANINE AMINOTRANSFERASE 33 IU/L (13-69); ALBUMIN 3.6 g/dl (3.3-4.9); ALKALINE PHOSPHATASE 80 IU/L (42-121); ANION GAP 8 (5-13); ASPARTATE AMINO TRANSFERASE 34 IU/L (15-46); BILIRUBIN,INDIRECT 0.4 mg/dl (0-1.1); BILIRUBIN,TOTAL 0.4 mg/dl (0.2-1.3); BLOOD UREA NITROGEN 21 mg/dl (7-20); CALCIUM 9.2 mg/dl (8.4-10.2); CARBON DIOXIDE 24 mmol/L (21-31); CHLORIDE 109 mmol/L (97-110); CREATININE 0.71 mg/dl (0.44-1.00); Estimated GFR > 60 mL/min (>60); GLUCOSE 314 mg/dl (70-220); MAGNESIUM 1.5 mg/dl (1.7-2.5); SODIUM 141 mmol/L (135-144); TOTAL PROTEIN 6.6 g/dl (6.1-8.1)
[2019-06-19] MEDS ORDERED: glipiZIDE 10 MG TAB PO (07:00)
[2019-06-19] MEDS: INSULIN ASPART [NOVOLOG] 3 ML PEN SC ×4 (08:28→20:47)
[2019-06-19] MEDS: LISINOPRIL 5 MG TAB PO (09:00)
[2019-06-19] MEDS ORDERED: NON-FORMULARY/PATIENT OWN MED (Mometasone-Formoterol (Dulera) 2 PUFFS) INHALATION (09:00)
[2019-06-19] MEDS: FLUOXETINE 20 MG CAP PO (09:09)
[2019-06-19] MEDS: FLUTICASONE/VILANTEROL 100-25 INH (09:49)
[2019-06-19] MEDS: DICLOFENAC SODIUM 1% GEL 100 GM TUBE TP ×3 (13:09→20:48)
[2019-06-19] MEDS: MAGNESIUM SULFATE 2 GM/50 ML 50 ML IVPB (13:09)
[2019-06-19] MEDS: SOD CHLORIDE 0.9% 1,000 ML IV (15:31)
[2019-06-19 16:27] LABS: ADD UMIC NO; UR ASCORBIC ACID NEGATIVE (NEGATIVE); UR BILIRUBIN (Dip) NEGATIVE (NEGATIVE); UR BLOOD (Dip) NEGATIVE (NEGATIVE); UR CLARITY CLEAR (CLEAR); UR COLOR YELLOW (YELLOW); UR GLUCOSE (Dip) 3+ mg/dL (NEGATIVE); UR KETONES (Dip) NEGATIVE (NEGATIVE); UR LEUKOCYTE ESTERASE (Dip) NEGATIVE Leu/ul (NEGATIVE); UR NITRITE (Dip) NEGATIVE (NEGATIVE); UR SPECIFIC GRAVITY (Dip) 1.018 (1.003-1.030); UR TOTAL PROTEIN (Dip) NEGATIVE (NEGATIVE); UR UROBILINOGEN (Dip) NEGATIVE (NEGATIVE)
[2019-06-19] MEDS: DOCUSATE SODIUM 250 MG CAP PO (17:55)
[2019-06-19] MEDS: ATORVASTATIN 40 MG TAB PO (20:38)
[2019-06-20] MEDS: ACCU-CHEK XX (02:00)
[2019-06-20] MEDS: morphine 2 MG INJ IV ×2 (06:14→14:53)
[2019-06-20 06:19] LABS: ANION GAP 7 (5-13); BLOOD UREA NITROGEN 17 mg/dl (7-20); CALCIUM 9.2 mg/dl (8.4-10.2); CARBON DIOXIDE 26 mmol/L (21-31); CHLORIDE 107 mmol/L (97-110); CREATININE 0.63 mg/dl (0.44-1.00); Estimated GFR > 60 mL/min (>60); GLUCOSE 281 mg/dl (70-220); MAGNESIUM 1.7 mg/dl (1.7-2.5); POTASSIUM 4.6 mmol/L (3.5-5.1); SODIUM 140 mmol/L (135-144)
[2019-06-20] MEDS: INSULIN ASPART [NOVOLOG] 3 ML PEN SC ×4 (08:12→21:27)
[2019-06-20] MEDS: FLUOXETINE 20 MG CAP PO (08:14)
[2019-06-20] MEDS: DOCUSATE SODIUM 250 MG CAP PO (08:14)
[2019-06-20] MEDS: LISINOPRIL 5 MG TAB PO (08:15)
[2019-06-20] MEDS: DICLOFENAC SODIUM 1% GEL 100 GM TUBE TP ×4 (08:15→21:00)
[2019-06-20] MEDS: FLUTICASONE/VILANTEROL 100-25 INH (08:15)
[2019-06-20] MEDS: ENOXAPARIN 40 MG/0.4 ML SYG SC (08:26)
[2019-06-20] MEDS: HYDROCODONE/APAP (5/325) TAB PO ×2 (15:10→21:17)
[2019-06-20] MEDS: metFORMIN 500 MG TAB PO (17:37)
[2019-06-20] MEDS: MONTELUKAST 10 MG TAB PO (21:16)
[2019-06-20] MEDS: ATORVASTATIN 40 MG TAB PO (21:17)
[2019-06-20] MEDS: INSULIN GLARGINE [LANTus] (100 UNITS/ML) SYG SC (21:27)
[2019-06-21] MEDS: ACCU-CHEK XX (02:00)
[2019-06-21] MEDS: HYDROCODONE/APAP (5/325) TAB PO (03:03)
[2019-06-21 06:31] LABS: ANION GAP 9 (5-13); BLOOD UREA NITROGEN 17 mg/dl (7-20); CALCIUM 9.6 mg/dl (8.4-10.2); CARBON DIOXIDE 25 mmol/L (21-31); CHLORIDE 105 mmol/L (97-110); CREATININE 0.58 mg/dl (0.44-1.00); Estimated GFR > 60 mL/min (>60); GLUCOSE 204 mg/dl (70-220); POTASSIUM 4.2 mmol/L (3.5-5.1); SODIUM 139 mmol/L (135-144)
[2019-06-21 07:43] LABS: ERYTHROCYTE SEDIMENTATION RATE 19 mm/Hr (0-30)
[2019-06-21] MEDS: DOCUSATE SODIUM 250 MG CAP PO (08:38)
[2019-06-21] MEDS: metFORMIN 500 MG TAB PO (08:38)
[2019-06-21] MEDS: FLUOXETINE 20 MG CAP PO (08:38)
[2019-06-21] MEDS: DICLOFENAC SODIUM 1% GEL 100 GM TUBE TP (08:39)
[2019-06-21] MEDS: FLUTICASONE/VILANTEROL 100-25 INH (08:39)
[2019-06-21] MEDS: LISINOPRIL 5 MG TAB PO (08:41)
[2019-06-21] MEDS: INSULIN ASPART [NOVOLOG] 3 ML PEN SC (08:44)
[2019-06-21] MEDS: ENOXAPARIN 40 MG/0.4 ML SYG SC (08:44)
== END 2019-06-21 10:57 | disposition home or self-care (01) ==
LOC: E/R 19:09 → 2NE 22:00
PROVIDERS: Family Medicine
DX: G89.18 Other acute postprocedural pain (principal); M54.5 Low back pain; M51.16 Intervertebral disc disorders with radiculopathy, lumbar region; E11.9 Type 2 diabetes mellitus without complications; Z79.4 Long term (current) use of insulin; I10 Essential (primary) hypertension; E78.5 Hyperlipidemia, unspecified; F32.9 Major depressive disorder, single episode, unspecified; J45.40 Moderate persistent asthma, uncomplicated; E66.9 Obesity, unspecified; Z68.32 Body mass index [BMI] 32.0-32.9, adult; N28.1 Cyst of kidney, acquired; E83.42 Hypomagnesemia
CPT/HCPCS: 72100; 72110; 72158; 76775; 80048; 80053; 81003; 82962; 83735; 85025; 85651; 87081; 87086; 96372; 97162; 99285-25